=== PATIENT | male | born 1970 | race Caucasian/White ===

== ENCOUNTER → 2024-02-18 09:31 | Outpatient (REF) | payer OTHER, SELFPAY | LOC: HWRAD 09:31 | PROVIDERS: ATTENDING PHYSICIAN Nurse Practitioner | DX: R10.30 Lower abdominal pain, unspecified (principal) | CPT/HCPCS: 74177; Q9967 ==

== ENCOUNTER → 2024-03-18 06:29 | Day surgery (SDC) | payer OTHER, SELFPAY | LOC: GI 06:29 | PROVIDERS: ATTENDING PHYSICIAN Surgery | DX: Z12.11 Encounter for screening for malignant neoplasm of colon (principal); R10.9 Unspecified abdominal pain; K57.30 Diverticulosis of large intestine without perforation or abscess without bleeding; D12.3 Benign neoplasm of transverse colon; K63.5 Polyp of colon | CPT/HCPCS: 45380; 88305 ==

== ENCOUNTER 2024-04-23 13:35 | Emergency (ER) | payer BC, SELFPAY ==
[2024-04-23 13:38] VITALS: BP 130/84
--- NOTE | 2024-04-23 14:07 | ED.GENMED ---
History of Present Illness
<India Alanis PA-C - Last Filed: 04/23/24 17:08>
General
Chief Complaint: Abdominal Symptoms
Source: patient and records
Time Seen by Provider: 04/23/24 13:46
History of Present Illness
History of Present Illness:
53yoM with a history of gout presenting with his for evaluation of abdominal pain. Patient has been having lower abdominal pain for a while. He was seen by his PCP for these symptoms 2 months ago and had a CT abdomen on 02/18/24 which showed
'severe wall thickening of the urinary bladder, suggestive of severe cystitis.' No urinalysis was sent. He also had a colonoscopy on 03/18/24 which was unremarkable other than a small polyp. Patient started having worsening symptoms about 4 days ago.
The pain is severe at times and is worse with movement, urination, and defecation. He reports subjective fevers and had to leave work early 4 days ago which is very unusual for him. He has not checked his temperature but reports feeling warm. His
bowel movements seem to be looser than normal. No vomiting, dysuria, testicular pain, scrotal swelling. No previous abdominal surgeries.
Past History
<Laxmi Edwards NP - Last Filed: 04/23/24 17:04>
Past History
ED Past Medical History: Hypercholesterolemia (diet controlled)
ED Past Surgical History: Orthopedic
Phy Exam
<India Alanis PA-C - Last Filed: 04/23/24 17:08>
General Physical Exam
General Presentation: well appearing and no apparent distress
General age: appears stated age
General Skin: warm and dry
General Habitus: normal
General Mental: alert
Cardiovascular Exam
Cardiovascular Exam: regular rate/rhythm
Pulmonary Exam
Pulmonary Exam: lungs clear, no respiratory distress, no crackles and no wheezing
Gastrointestinal Exam
Gastrointestinal Exam: soft, non distended, no cva tenderness and tender (+Tenderness in suprapubic and RLQ pain. No guarding or rebound. )
Chamberlain Coma Scale
Eye Opening: Spontaneous
Verbal Response: Oriented
Motor Response: Obeys Commands
GCS Total Score: 15
Skin Exam
Skin Exam: normal color and warm/dry
Psychiatric Exam
Psychiatric Exam: normal mood/affect
<Laxmi Edwards NP - Last Filed: 04/23/24 17:04>
Kirill Coma Scale
GCS Total Score: 15
Course
<India Alanis PA-C - Last Filed: 04/23/24 17:08>
Orders/Labs/Results
Orders:
Orders
04/23/24 14:06
CT Abd/pelvis W Iv Cont Urgent
Comment:
Reason For Exam: RLQ pain, suprapubic pain
0.9% Sodium Chloride 1000 ml [Nss] 1,000 ml IV BOLUS
04/23/24 14:30
Complete Blood Count/With Diff Urgent
Comprehensive Metabolic Panel Urgent
Lipase Urgent
Urinalysis Reflex To Culture Urgent
Date Specimen was Collected: 04/23/24
Time Specimen was Collected: 14:27
04/23/24 16:52
Amoxicillin 875 mg/Clav 125 mg [Augmentin 875 mg/125 mg] 1 tablet PO NOW STA
Abnormal Lab Results
04/23/24
14:30
WBC 12.6 H 10^3/uL
(4.8-10.8)
RBC 4.66 L 10^6/uL
(4.70-6.10)
MCH 31.1 H pg
(27.0-31.0)
Abs Immat Gran (auto) 0.1 H 10^3/uL
(0-0.05)
Absolute Neuts (auto) 9.9 H 10^3/uL
(1.4-6.5)
Absolute Monos (auto) 0.8 H 10^3/uL
(0.1-0.6)
Neutrophils % 78.5 H %
(42.2-75.2)
Lymphocytes % 13.6 L %
(20.5-51.1)
Glucose 103 H mg/dl
(70-99)
Total Bilirubin 2.0 H mg/dl
(0.2-1.3)
04/23/24 14:30
04/23/24 14:30
Vital Signs
Initial and Last Documented VS:
Initial Vital Signs
Temp Pulse Resp BP Pulse Ox
99.0 F 75 16 130/84 98
04/23/24 13:38 04/23/24 13:38 04/23/24 13:38 04/23/24 13:38 04/23/24 13:38
Last Documented Vital Signs
Temp Pulse Resp BP Pulse Ox
99.0 F 72 18 131/84 96
04/23/24 13:38 04/23/24 14:37 04/23/24 14:37 04/23/24 14:37 04/23/24 14:37
<Laxmi Edwards [employer] - Last Filed: 04/23/24 17:04>
Orders/Labs/Results
Orders:
Orders
04/23/24 14:06
CT Abd/pelvis W Iv Cont Urgent
Comment:
Reason For Exam: RLQ pain, suprapubic pain
0.9% Sodium Chloride 1000 ml [Nss] 1,000 ml IV BOLUS
04/23/24 14:30
Complete Blood Count/With Diff Urgent
Comprehensive Metabolic Panel Urgent
Lipase Urgent
Urinalysis Reflex To Culture Urgent
Date Specimen was Collected: 04/23/24
Time Specimen was Collected: 14:27
04/23/24 16:52
Amoxicillin 875 mg/Clav 125 mg [Augmentin 875 mg/125 mg] 1 tablet PO NOW STA
Abnormal Lab Results
04/23/24
14:30
WBC 12.6 H 10^3/uL
(4.8-10.8)
RBC 4.66 L 10^6/uL
(4.70-6.10)
MCH 31.1 H pg
(27.0-31.0)
Abs Immat Gran (auto) 0.1 H 10^3/uL
(0-0.05)
Absolute Neuts (auto) 9.9 H 10^3/uL
(1.4-6.5)
Absolute Monos (auto) 0.8 H 10^3/uL
(0.1-0.6)
Neutrophils % 78.5 H %
(42.2-75.2)
Lymphocytes % 13.6 L %
(20.5-51.1)
Glucose 103 H mg/dl
(70-99)
Total Bilirubin 2.0 H mg/dl
(0.2-1.3)
04/23/24 14:30
04/23/24 14:30
Vital Signs
Initial and Last Documented VS:
Initial Vital Signs
Temp Pulse Resp BP Pulse Ox
99.0 F 75 16 130/84 98
04/23/24 13:38 04/23/24 13:38 04/23/24 13:38 04/23/24 13:38 04/23/24 13:38
Last Documented Vital Signs
Temp Pulse Resp BP Pulse Ox
99.0 F 72 18 131/84 96
04/23/24 13:38 04/23/24 14:37 04/23/24 14:37 04/23/24 14:37 04/23/24 14:37
Alpalt;India Alanis PA-C - Last Filed: 04/23/24 17:08>
MDM/Problems Addressed
Differential Diagnosis Includes:
53yoM here with lower abd pain. He was seen by his PCP for similar complaints 2 months ago. C/o worsening pain x 4 days with subjective fevers. He is afebrile and hemodynamically stable. He is non-toxic appearing. No signs of peritonitis on
abdominal exam. Differential diagnosis includes but is not limited to: appendicitis, kidney stone, cystitis, diverticulitis, colitis
Initial ED plan: Check abdominal labs, UA, and CT abdomen. IV fluid bolus. Patient declines analgesics.
<Laxmi Edwards NP - Last Filed: 04/23/24 17:04>
*Critical Care Note
Total Time (30-74mins, 75-104mins- exclusive of procedures): Not Applicable
<Laxmi Edwards NP - Last Filed: 04/23/24 17:04>
Update Note
Update Note:
CT results discussed with patient and spouse. Augmentin started in dept. COlonoscopy [address] Paris[address] Will follow up in office. Given instructions on s/s to return to ED and he is agreeable to plan.
ED Attending Note
<India Alanis PA-C - Last Filed: 04/23/24 17:08>
-
Portions of this chart may have been created with voice recognition software.� Occasional wrong word or��sound alike� substitutions may have occurred due to the inherent limitations of voice recognition software.
Discharge Plan
Departure
Patient Disposition: Home (Routine Discharge)
Date of Disposition: 04/23/24
Time of Disposition: 16:53
Patient with high blood pressure during this ER visit?: No
Condition: Good
Covid-19: Not Applicable
Discharge Problem:
Diverticulitis
Instructions: Clear Liquid Diet, Diverticulitis (DC)
Prescriptions:
New
amoxicillin-pot clavulanate 875-125 mg tablet
1 tab PO BID Qty: 20 0RF
Referrals:
Berhane Paris MD [Active] - Call in 1-3 days for appt
Christine Johnson CRNP [Family Provider] -
Activity Restrictions/Additional Instructions:
Return to the emergency department immediately for any changes in/worsening of your symptoms.
Interventions
Interventions:
*Risk Screen - Suicide Last Done: 04/23/24 14:36
*Neglect/Abuse Screening Last Done: 04/23/24 14:36
ED- Fall Risk Assessment Last Done: 04/23/24 14:37
OW-Jvudyl-Uegprltslt Assessment Last Done: 04/23/24 14:36
Discharge Date and Time
Print Language: FRENCH
[2024-04-23] MEDS: NSS 1000 IV (14:33)
[2024-04-23 14:37] VITALS: BP 131/84
[2024-04-23 14:41] LABS: % Basophils 0.4 % (0-2); % Eosinophils 0.3 % (0-6); % Immature Granulocytes 0.5 % (0-0.5); % Lymphocytes 13.6 % (20.5-51.1); % Monocytes 6.7 % (1.7-9.3); % Neutrophils 78.5 % (42.2-75.2); Absolute Basophils 0.1 10^3/uL (0-0.2); Absolute Immature Granulocytes 0.1 10^3/uL (0-0.05); Absolute Lymphocytes 1.7 10^3/uL (1.2-3.4); Absolute Monocytes 0.8 10^3/uL (0.1-0.6); Absolute Neutrophils 9.9 10^3/uL (1.4-6.5); Hematocrit 40.3 % (39.0-52.0); Hemoglobin 14.5 g/dL (13.0-18.0); Mean Corpuscular Hgb 31.1 pg (27.0-31.0); Mean Corpuscular Volume 86.5 fL (80.0-94.0); Mean Platelet Volume 9.2 fL (7.4-10.4); Nucleated Red Blood Cells % 0 % (-); Platelet Count 260 10^3/uL (130-400); Red Blood Cell Count 4.66 10^6/uL (4.70-6.10); Red Cell Dist. Width 12.9 % (11.5-14.5); White Blood Cell Count 12.6 10^3/uL (4.8-10.8)
[2024-04-23 14:45] LABS: Urine Albumin Negative (Neg - Trace); Urine Bilirubin Negative (Negative); Urine Character Clear (Clear); Urine Color Yellow; Urine Glucose Negative (Negative); Urine Ketone Negative (Negative); Urine Leukocyte Negative (Negative); Urine Nitrite Negative (Negative); Urine Occult Blood Negative (Negative); Urine Urobilinogen Negative (Neg - 1+)
[2024-04-23 14:59] LABS: ALT (SGPT) 31 U/L (0-50); AST (SGOT) 24 U/L (17-59); Albumin 4.6 g/dl (3.5-5.0); Alkaline Phosphatase 67 U/L (38-126); Blood Urea Nitrogen 14 mg/dl (9-20); Calcium 9.7 mg/dl (8.4-10.2); Carbon Dioxide 26 mmol/L (22-30); Chloride 101 mmol/L (98-107); Glucose 103 mg/dl (70-99); Lipase 45 U/L (23-300); Potassium 4.4 mmol/L (3.5-5.1); Sodium 139 mmol/L (135-145); Total Protein 7.2 g/dl (6.3-8.2); eGFR > 60.00
[2024-04-23] MEDS: AUGMENTIN 875 MG/125 MG 1 TABLET PO (16:57)
[2024-04-23 17:07] VITALS: BP 148/73
== END 2024-04-23 17:08 | disposition home or self-care (01) ==
LOC: EMR 13:35
PROVIDERS: Physician Assistant; EMERGENCY PHYSICIAN Emergency Medicine; FAMILY PHYSICIAN Nurse Practitioner
DX: K57.32 Diverticulitis of large intestine without perforation or abscess without bleeding (principal)
CPT/HCPCS: 96360; 74177; 80053; 81003; 83690; 85025; 99284; Q9967

== ENCOUNTER → 2024-09-10 07:36 | Outpatient (REF) | payer BC, SELFPAY | LOC: RAD 07:36 | PROVIDERS: ATTENDING PHYSICIAN Hospitalist; FAMILY PHYSICIAN Internal Medicine | DX: R10.9 Unspecified abdominal pain (principal) | CPT/HCPCS: 74177; Q9967 ==